=== PATIENT | male | born 1940 | race Caucasian/White ===

== ENCOUNTER 2016-10-26 06:50 | Day surgery (SDC) | payer MEDICARE ==
[~2016-10-26] VITALS: Ht 170.2 cm; Wt 62.0 kg
[~2016-10-26 06:50] MED LIST: AMLO10TA2 PO; ASPI1TAB69 PO; ATOR40TA16 PO; CALC0.25 PO; DONE5TAB7 PO; LATA0.002 EACH EYE; LEVO75TA3 PO; LOSA25TA PO; MAGN400T2 PO; MEMA1TAB PO; METF500T PO; METO25TA6 PO; RANI150C PO
[2016-10-26 07:24] VITALS: BP 184/88; PULSE 62; RESP 20; TEMP 97.5; O2SAT 99
[2016-10-26] MEDS ORDERED: MULT1TAB84 PO (07:26)
[2016-10-26] MEDS ORDERED: OMEGCAP PO (07:26)
[2016-10-26] MEDS ORDERED: TIMO0.5S30 EACH EYE (07:26)
[2016-10-26 07:55] LABS: APTT (PATIENT) 27.7 SEC (24.3-30.1); PROTHROMBIN TIME - PATIENT 11.1 SEC (9.8-11.6)
[2016-10-26] MEDS ORDERED: SODIUM CHLOR 0.9% 1000 ML INJ 1,000 ML IV SCH (08:00)
[2016-10-26] MEDS ORDERED: LIDOCAINE 1%/EPINEPHrine 1:100,000 SOLN 20 ML VIAL ONE (09:01)
--- NOTE | 2016-10-26 15:13 | RADRPT ---
EXAM DATE/TIME: 10/26/2016 00:00 [place] COMPARISON: No previous studies available for comparison. OUTSIDE STUDY REVIEWED: INDICATIONS : Renal biopsy for function Mr. BENSON came in for renal biopsy for function. He is very unsure about having the pro cedure done even after delay a lengthy conversation with myself and my nurse. I encouraged him to talk with his and decide whether or not he wants the procedure done. If he decides he wants to proceed we'll be happy to reschedule. . Tony Lowery MD FACR on October 26, 2016 at 15:05 Board Certified Radiologist. This report was verified electronically.
[2016-11-05] MEDS ORDERED: LEVO75TA3 PO (13:19)
[2016-11-06] MEDS ORDERED: RANI150C PO (13:12)
[2016-12-14] MEDS ORDERED: LEVO75TA3 PO (16:43)
== END 2016-10-26 09:45 | disposition home or self-care (01) ==
LOC: HRAD 06:50 → HRIP 06:51 → HRAD 09:45
DX: I12.9 Hypertensive chronic kidney disease with stage 1 through stage 4 chronic kidney disease, or unspecified chronic kidney disease (principal); Z53.8 Procedure and treatment not carried out for other reasons; N18.3 Chronic kidney disease, stage 3 (moderate); D63.1 Anemia in chronic kidney disease; E03.9 Hypothyroidism, unspecified; E78.2 Mixed hyperlipidemia; M83.9 Adult osteomalacia, unspecified; E55.9 Vitamin D deficiency, unspecified
CPT/HCPCS: 85610; 85730; G0463; J7030; 76140; 99211